=== PATIENT | female | born 1995 | race Caucasian/White ===

== ENCOUNTER 2018-04-15 10:33 | Emergency (ER) | payer MEDICAID ==
[2018-04-15 10:44] VITALS: BP 135/83
--- NOTE | 2018-04-15 10:46 | EDPHY ---
H & P Time Seen by Provider: 04/15/18 10:42 HPI/ROS: CHIEF COMPLAINT: Left ankle, left foot pain HISTORY OF PRESENT ILLNESS: Patient is a 22-year-old female who presents emergency department after tripping and falling injuring her ankle and foot. The patient is not sure exactly what happened. She tripped and fell. She subsequently has pain over her left lateral malleolus. This is mild. Worse with ambulation. Patient also has pain over the lateral aspect of her foot. She has no numbness or tingling. No other injury. REVIEW OF SYSTEMS: Negative Past medical history: Noncontributory Social history: Patient smokes Smoking Status: Current every day smoker Physical Exam: Vitals noted General Appearance: Alert and no distress. Head: Pupils equal. Normal. Respiratory: No respiratory distress. Cardiac: regular rate and rhythm. LLE: Patient's left foot and ankle appear normal. There is no significant swelling. She has mild tenderness palpation at the base of her lateral malleolus. There is mild tenderness palpation over her 5th metatarsal. Neurovascular intact distally. There is no proximal tib-fib tenderness to palpation. Skin: No rashes or lesions. Neuro: Alert. Normal mood and affect. Constitutional: Initial Vital Signs Temperature (C) 36.7 C 04/15/18 10:41 Heart Rate 119 H 04/15/18 10:41 Respiratory Rate 18 04/15/18 10:41 Blood Pressure 135/83 H 04/15/18 10:41 O2 Sat (%) 97 04/15/18 10:41 O2 Delivery Mode Room Air Allergies/Adverse Reactions: No Known Allergies Allergy (Unverified 04/15/18 10:41) Home Medications: Medication Instructions Recorded NK [No Known Home Meds] 04/15/18 Medical Decision Making - Diagnostics Imaging Results: Imaging Impressions Ankle X-Ray 04/15/18 10:43 Impression: Nothing acute identified. 2.Left Ankle, Three Views History: Pain, post trauma today. Findings: No fracture, effusion, or dislocation is identified. The talar dome is intact. Impression: Nothing acute identified. Foot X-Ray 04/15/18 10:43 Impression: Nothing acute identified. 2.Left Ankle, Three Views History: Pain, post trauma today. Findings: No fracture, effusion, or dislocation is identified. The talar dome is intact. Impression: Nothing acute identified. ED Course/Re-evaluation: In the emergency department I discussed possible etiologies with the patient. Answered all her questions. She denies . She consented x-ray X-ray of left ankle: Please refer the dictated report. No acute disease noted. X-ray left foot: Please refer the dictated report. No acute disease noted. I discussed the results with the patient. I answered all her questions. She was given warnings prior to leaving. She will return with worsening symptoms. She was given crutches in a [place] boot. Patient was given follow-up with Orthopedics. Post splint placement the patient was neurovascular intact distally. Differential Diagnosis: My differential includes but is not limited to fracture, dislocation, contusion , sprain, strain Departure - Departure Disposition: Home, Routine, Self-Care Clinical Impression: Foot sprain Qualifiers: Encounter type: initial encounter Laterality: left Qualified Code(s): S93.602A - Unspecified sprain of left foot, initial encounter Ankle sprain Qualifiers: Encounter type: initial encounter Involved ligament of ankle: other ligament Laterality: left Qualified Code(s): S93.492A - Sprain of other ligament of left ankle, initial encounter Condition: Good Instructions: Ankle Sprain (ED), Foot Sprain (ED) Additional Instructions: Use your splint for comfort. You can weight bear as tolerated. Return with increasing pain or weakness. You need follow-up with Orthopedics to ensure injury is healing. Referrals: Demarco Mckeon MD [Medical Doctor] - 5-7 days, call for appt.
== END 2018-04-15 11:45 | disposition home or self-care (01) ==
LOC: CED 10:33
DX: S93.492A Sprain of other ligament of left ankle, initial encounter (principal); S93.602A Unspecified sprain of left foot, initial encounter; W01.0XXA Fall on same level from slipping, tripping and stumbling without subsequent striking against object, initial encounter; Y92.9 Unspecified place or not applicable; Y99.9 Unspecified external cause status; Y93.9 Activity, unspecified
CPT/HCPCS: 73610-PO; 73630-PO; 99283-ER; L4386-ER